=== PATIENT | female | born 1940 | race Caucasian/White ===

== ENCOUNTER → 2022-10-13 14:41 | Outpatient (CLI) | payer MEDICARE, OTHER, SELFPAY ==
--- NOTE | 2022-10-13 14:47 | DI.RAD.S_ITS ---
PROCEDURE: XR LUMBAR SPINE MIN 4V INDICATIONS: BACK PAIN TECHNIQUE: 5 views of the lumbar spine were acquired, including bilateral oblique views. COMPARISON: None. FINDINGS: Bones: Bones are diffusely osteopenic. There is 19.7? right convex scoliosis centered at L2-3. Severe endplate compression deformities are present at T11, T12, and L1. Moderate degenerative changes are present including intervertebral disc space narrowing, endplate sclerosis, osteophytosis, and facet sclerosis. Soft tissues: Overlying bowel gas pattern is normal. No suspicious soft tissue calcifications. Oblique images: No pars defects where visualized. IMPRESSION: 1. Endplate compression deformities from T11-L1. 2. Moderate degenerative change throughout the lumbar spine. 3. No spondylolysis or spondylolisthesis. Dictated by: Farnaz Garcia M.D. on 10/13/2022 at 16:47 Approved by: Farnaz Garcia M.D. on 10/13/2022 at 16:49
== END ==
PROVIDERS: PCP Family Medicine; Referring Provider Physical Medicine & Rehabilitation; Visit Provider Physical Medicine & Rehabilitation
DX: M47.816 Spondylosis without myelopathy or radiculopathy, lumbar region (principal); M43.8X5 Other specified deforming dorsopathies, thoracolumbar region; M54.9 Dorsalgia, unspecified; M25.552 Pain in left hip; M41.26 Other idiopathic scoliosis, lumbar region; M81.0 Age-related osteoporosis without current pathological fracture; M48.00 Spinal stenosis, site unspecified; Z96.643 Presence of artificial hip joint, bilateral
CPT/HCPCS: 72110; 99214

== ENCOUNTER → 2022-10-18 13:34 | Outpatient (CLI) | payer MEDICARE, OTHER, SELFPAY ==
--- NOTE | 2022-10-18 13:36 | DI.MRI.S_ITS ---
PROCEDURE: MR HIP LT WO CON INDICATIONS: left lateral hip pain s/p BLAYNE TECHNIQUE: Noncontrast coronal T1 spin echo and STIR through the bony pelvis. Coronal and axial T2 fast spin echo with fat saturation, sagittal T1 spin echo, and oblique axial T2 fast spin echo with fat saturation through the hip. COMPARISON: [facility], CR, XR LUMBAR SPINE MIN 4V, 10/13/2022, 15:12. FINDINGS: Image quality: Excellent. Bones and joints: Patient is status post bilateral total hip arthroplasty. Significant susceptibility artifacts are noted limits the evaluation of adjacent structures. There is no gross marrow edema. No acute fracture or dislocation. No suspicious bony lesions. Tendons and ligaments: Distal left gluteus medius and minimus tendinosis at their insertions on greater trochanter is seen. Small amount of fluid within trochanteric bursa is seen. Low-grade partial-thickness tear involving left distal gluteus medius cannot be excluded., without associated muscle atrophy. The nearby proximal iliotibial band also appears intact. The iliopsoas tendon appears intact, without adjacent bursal fluid collections or evidence for impingement syndrome. The origin of the hamstring tendon is intact at the ischial tuberosity, as well as the associated sacrotuberous ligament. The straight and reflected heads of the rectus femoris muscle origin appear intact, as well as the conjoint tendon. Soft tissues: Small amount of left hip joint effusion is seen. Visualized muscles demonstrate normal bulk and internal signal. Quadratus femoris muscle demonstrates no internal edema to suggest ischiofemoral impingement. The proximal sciatic neurovascular bundle appears normal adjacent to the hamstring tendons. No free pelvic fluid. Bladder wall thickness is normal. Genitourinary structures and bowel loops appear normal where visualized. IMPRESSION: 1. 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 No gross marrow edema. No acute fracture or dislocation. Degenerative disc disease in visualized lower lumbar spine. 2. Distal left gluteus medius tendinosis and low to moderate grade partial-thickness tear at its insertion on greater trochanter. Distal gluteus minimus tendinosis. No other muscle or tendon signal abnormalities. Small amount of fluid within trochanteric bursa, which may indicate low-grade bursitis. Dictated by: Smith Newman M.D. on 10/20/2022 at 8:52 Approved by: Smith Newman M.D. on 10/20/2022 at 8:56
== END ==
PROVIDERS: PCP Family Medicine; Referring Provider Physical Medicine & Rehabilitation; Visit Provider Physical Medicine & Rehabilitation
DX: S76.012A Strain of muscle, fascia and tendon of left hip, initial encounter (principal); M51.36 Other intervertebral disc degeneration, lumbar region; M25.552 Pain in left hip; Z96.649 Presence of unspecified artificial hip joint
CPT/HCPCS: 73721